=== PATIENT | female | born 1950 | race African-American/Black ===

== ENCOUNTER 2018-07-13 14:41 | Emergency (ER) | payer BC, OTHER ==
[~2018-07-13] VITALS: Ht 170.2 cm; Wt 90.7 kg
[2018-07-13 16:00] LABS: Albumin 3.8 g/dL (3.4-5.0); Anion Gap 5 (5-15); Blood Urea Nitrogen 17 mg/dL (7-18); Calcium 9.9 mg/dL (8.5-10.1); Carbon Dioxide 32 mmol/L (21-32); Chloride 103 mmol/L (98-107); Glucose 222 mg/dL (74-106); Magnesium 2.1 mg/dL (1.6-2.6); Potassium 3.8 mmol/L (3.5-5.1); Sodium 140 mmol/L (136-145)
[2018-07-13 16:01] LABS: Basophils # (auto) 0.1 uL; Eosinophils # (auto) 0.2 uL; Monocytes % (auto) 5.8 % (0.0-12.0)
[2018-07-13 16:04] LABS: Basophils % (auto) 0.8 % (0.0-2.0); Eosinophils % (auto) 1.8 % (0.0-7.0); Hematocrit 37.3 % (36.0-46.0); Hemoglobin 12.1 g/dL (12.2-16.2); Lymphocytes # (auto) 1.8 uL; Lymphocytes % (auto) 18.6 % (10.0-50.0); Mean Corpuscular Hemoglobin 26.2 pg (28.0-32.0); Mean Corpuscular Hgb Conc. 32.4 g/dL (32.0-36.0); Mean Corpuscular Volume 80.8 fL (80.0-100.0); Monocytes # (auto) 0.6 uL; Neutrophils # (auto) 7.1 uL; Platelet Count (auto) 321 10^3/uL (140-450); Red Blood Cells 4.62 10^6/uL (4.0-5.20); Red Cell Distribution Width 18.2 % (11.8-14.3); White Blood Cell 9.7 10^3/uL (4.4-10.8)
[2018-07-13 16:14] LABS: Alanine Aminotransferase 24 U/L (13-56); Alkaline Phosphatase 75 U/L (45-117); Aspartate Aminotransferase 17 U/L (15-37); Bilirubin, Total 0.3 mg/dL (0.2-1.0); GFR African American 91 mL/min; GFR Non-African American 75 mL/min; Lipase 123 U/L (73-393); Total Protein 7.4 g/dL (6.4-8.2)
[2018-07-13] MEDS ORDERED: PANTOPRAZOLE 40 MG/10 ML VIAL IV ONE (19:30)
[2018-07-13 19:35] VITALS: BP 165/52
== END 2018-07-13 20:41 | disposition home or self-care (01) ==
LOC: ER 14:47 → EDBD 14:47 → ER 20:41
DX: R07.9 Chest pain, unspecified (principal); K29.00 Acute gastritis without bleeding; R42 Dizziness and giddiness; E11.9 Type 2 diabetes mellitus without complications; I10 Essential (primary) hypertension; Z90.710 Acquired absence of both cervix and uterus; Z86.718 Personal history of other venous thrombosis and embolism
CPT/HCPCS: 36415; 71046; 76705; 80053; 83690; 83735; 84484; 85025; 93005; 94761; 96374; 99284; C9113

== ENCOUNTER 2019-03-20 00:17 | Emergency (ER) | payer BC ==
[~2019-03-20] VITALS: Ht 170.2 cm; Wt 95.3 kg
[2019-03-20] MEDS ORDERED: ALBUTEROL SULF 2.5 MG/0.5ML(0.5%) NEB SOLN HHN STA (00:38)
[2019-03-20] MEDS ORDERED: ALBUTEROL SULF 2.5 MG/0.5ML(0.5%) NEB SOLN NEB ONE (00:45)
[2019-03-20] MEDS ORDERED: IPRATROPIUM BROM 0.5 MG/2.5ML INH SOL NEB ONE (00:45)
[2019-03-20 01:08] LABS: Basophils # (auto) 0.2 uL; Eosinophils # (auto) 0 uL; Mean Corpuscular Volume 78.5 fL (80.0-100.0); Monocytes # (auto) 0.2 uL; White Blood Cell 13.6 10^3/uL (4.4-10.8)
[2019-03-20 01:09] LABS: Basophils % (auto) 1.3 % (0.0-2.0); Hematocrit 35.1 % (36.0-46.0); Hemoglobin 11.6 g/dL (12.2-16.2); Lymphocytes # (auto) 0.8 uL; Lymphocytes % (auto) 5.8 % (10.0-50.0); Mean Corpuscular Hgb Conc. 33.2 g/dL (32.0-36.0); Monocytes % (auto) 1.8 % (0.0-12.0); Neutrophils # (auto) 12.4 uL; Neutrophils % (auto) 91.1 % (37.0-80.0); Nucleated Red Blood Cells % 0.1 %; Platelet Count (auto) 361 10^3/uL (140-450); Red Blood Cells 4.47 10^6/uL (4.0-5.20); Red Cell Distribution Width 16.9 % (11.8-14.3)
[2019-03-20 01:24] LABS: Alanine Aminotransferase 26 U/L (13-56); Albumin 3.7 g/dL (3.4-5.0); Anion Gap 10 (5-15); Aspartate Aminotransferase 13 U/L (15-37); BUN/Creatinine Ratio 19.8; Blood Urea Nitrogen 18 mg/dL (7-18); Calcium 9.1 mg/dL (8.5-10.1); Carbon Dioxide 25 mmol/L (21-32); Chloride 102 mmol/L (98-107); GFR African American 80 mL/min; GFR Non-African American 66 mL/min; Glucose 347 mg/dL (74-106); INR 0.99 (0.9-1.15); Partial Thromboplastin Time 26.5 sec (23.64-32.05); Potassium 3.8 mmol/L (3.5-5.1); Sodium 137 mmol/L (136-145)
[2019-03-20 01:29] LABS: Alkaline Phosphatase 99 U/L (45-117); Bilirubin, Total 0.4 mg/dL (0.2-1.0); Total Protein 7.8 g/dL (6.4-8.2)
[2019-03-20] MEDS ORDERED: IOHEXOL 350 MG/ML 100ML IJ ONE (05:48)
[2019-03-20 06:32] LABS: Urine Bacteria FEW /hpf (None Seen); Urine Blood Negative /uL (Negative); Urine Specific Gravity 1.029 (1.001-1.035); Urine WBC 6 /hpf (0 - 5)
[2019-03-20 07:47] VITALS: BP 177/70
== END 2019-03-20 07:49 | disposition home or self-care (01) ==
LOC: ER 00:18
DX: J44.1 Chronic obstructive pulmonary disease with (acute) exacerbation (principal); E11.9 Type 2 diabetes mellitus without complications; I10 Essential (primary) hypertension; Z90.710 Acquired absence of both cervix and uterus; Z90.89 Acquired absence of other organs
CPT/HCPCS: 36415; 71045; 71275; 80053; 81001; 82962; 83880; 84484; 85025; 85379; 85610; 85730; 93005; 94640; 99284; J7644; Q9967

== ENCOUNTER 2019-08-14 21:55 | Emergency (ER) | payer BC ==
[~2019-08-14] VITALS: Ht 165.1 cm; Wt 104.3 kg
[2019-08-14] MEDS ORDERED: SODIUM BICARBONATE 8.4% INJ 50ML SYRINGE IV ONE (21:56)
[2019-08-14] MEDS ORDERED: EPINEPHrine HCL 1 MG/10 ML SYRG IV ONE (21:56)
[2019-08-14 22:05] VITALS: BP 0/0
== END 2019-08-14 22:07 | disposition expired ==
LOC: ER 21:55 → EDBD 21:55 → ER 22:07
DX: I46.9 Cardiac arrest, cause unspecified (principal); J44.9 Chronic obstructive pulmonary disease, unspecified; E11.9 Type 2 diabetes mellitus without complications; I10 Essential (primary) hypertension; Z90.710 Acquired absence of both cervix and uterus; Z88.6 Allergy status to analgesic agent
CPT/HCPCS: 31500; 92950; 99291; J0171